=== PATIENT | male | born 1965 | race Caucasian/White ===

== ENCOUNTER 2017-11-06 13:23 | Emergency (ER) | payer OTHER ==
[~2017-11-06] VITALS: Ht 172.7 cm; Wt 76.0 kg
[~2017-11-06 13:23] MED LIST: IBUP-1451 PO
[2017-11-06 13:29] VITALS: TEMP 37.5
[2017-11-06 13:56] VITALS: O2SAT 94; Ht 172.7 cm; Wt 76.0 kg
[2017-11-06 14:05] LABS: BASO % 0.2 %; BASO ABS # 0.01 K/uL (0-0.2); EOS % 1.9 %; HEMATOCRIT 39.1 % (42-52); HEMOGLOBIN 12.8 g/dL (14.0-18.0); IG# 0.01 K/uL (0.00-0.02); LYMPH % 26.3 %; LYMPH ABS # 1.41 K/uL (1.2-3.4); MEAN CELL VOLUME 88.9 fL (80-100); MEAN CORPUSCULAR HEMOGLOBIN 29.1 pg (25-34); MEAN CORPUSCULAR HGB CONC 32.7 g/dl (32-36); MEAN PLATELET VOLUME 9.9 fL (7.4-10.4); MONO % 12.5 %; MONO ABS # 0.67 K/uL (0.11-0.59); NEUT % 58.9 %; NEUT ABS # 3.17 K/uL (1.4-6.5); PLATELET COUNT 171 K/uL (130-400); RED CELL DISTRIBUTION WIDTH CV 13.4 % (11.5-14.5); RED CELL DISTRIBUTION WIDTH SD 43.5 fL (36.4-46.3); WHITE BLOOD COUNT 5.37 K/uL (4.8-10.8)
[2017-11-06] MEDS ORDERED: LISI10TA PO (14:10)
[2017-11-06] MEDS ORDERED: OXYC-57 PO (14:10)
[2017-11-06] MEDS ORDERED: PROM25TA9 PO (14:10)
[2017-11-06 14:15] LABS: INR 0.9 (0.9-1.1); PTT PATIENT 30.2 SECONDS (21.0-31.0)
[2017-11-06 14:26] LABS: ALBUMIN 3.8 gm/dl (3.4-5.0); CALCIUM 9.1 mg/dl (8.5-10.1); CREATININE 0.86 mg/dl (0.60-1.40); POTASSIUM 4.1 mmol/L (3.5-5.1)
[2017-11-06 14:28] LABS: TOTAL PROTEIN 7.3 gm/dl (6.4-8.2)
--- NOTE | 2017-11-06 14:54 | DIAGNOSTIC IMAGING REPORT ---
VENOUS DOPPLER LWR EXT BILA CLINICAL HISTORY: 52 years-old Male presenting with recent surgery, swollen legs. TECHNIQUE: Real-time grayscale and color and spectral Doppler ultrasound imaging of the veins of the bilateral lower extremities was performed. Compression and augmentation were also utilized. COMPARISON: None. FINDINGS: Right: Common femoral vein: Patent. Greater saphenous vein: Patent. Deep femoral vein: Patent. Femoral vein: Patent. Popliteal vein: Patent. Calf veins: Patent. Left: Common femoral vein: Patent. Greater saphenous vein: Patent. Deep femoral vein: Patent. Femoral vein: Patent. Popliteal vein: Patent. Calf veins: Patent. Other: None. IMPRESSION: No evidence of deep venous thrombosis. Electronically signed by: Severo Stapleton M.D. 11/06/2017 2:53 PM Dictated Date/Time: 11/06/2017 2:52 PM
[2017-11-06] MEDS ORDERED: ONDANSETRON INJ 2 MG/ML 2 ML VIAL IV STA (15:05)
[2017-11-06] MEDS ORDERED: HYDROmorphone INJ 1 MG/ML SYR ONE (15:09)
[2017-11-06] MEDS ORDERED: ONDANSETRON INJ 2 MG/ML 2 ML VIAL ONE (15:09)
[2017-11-06] MEDS ORDERED: HYDROmorphone INJ 1 MG/ML SYR IV PRN (15:15)
[2017-11-06 15:29] VITALS: BP 133/78
[2017-11-06 16:07] VITALS: PULSE 70; O2SAT 97
--- NOTE | 2017-11-06 19:00 | EMERGENCY ROOM VISIT NOTE ---
History Report prepared by Cherise: Chirag Bishop Under the Supervision of: Dr. Marty Shah M.D. First contact with patient: 13:33 Chief Complaint: LEG PAIN,LEG INJURY Stated Complaint: SURGERY ON SATURDAY,LEG SWELLING History of Present Illness The patient is a 52 year old male who presents to the Emergency Room with complaints of bilateral lower extremity swelling that began about 1 hour ago. The patient had a right sided shoulder repair procedure two days ago. After the surgery, he states that he was having normal post operative pain but no other symptoms. Yesterday he was at his baseline as well and spent the day relaxing off of his feet like he was told. Today while the patient was walking down the stairs, he felt some right sided leg tightness which made him examine his legs. He then saw that both of his legs were more swollen than usual. He denies any specific leg pain at this time. Pt denies LOC, headache, fevers, chills, diaphoresis, visual changes, neck pain, chest pain, breathing difficulties, nausea, vomiting, abdominal pain, back pain, melena, hematochezia, urinary symptoms, numbness, weakness, lymphadenopathy, rash, or other complaints. He denies any previous leg swelling or blood clot history. He took one of his Oxycodone/Acetaminophen 5 mg/ 325 mg earlier today secondary to his shoulder pain. Source of History: patient Onset: 1 hour ago Position: leg (bilateral) Symptom Intensity: moderate Quality: other (Swelling) Timing: constant Note: He is experiencing right shoulder pain secondary to his recent surgery. He denies any leg pain. Review of Systems See HPI for pertinent positives and negatives. A total of ten systems were reviewed and were otherwise negative. Family History Patient reports no known family medical history. Social History Smoking Status: Never Smoker Marital Status: Housing Status: lives with significant other Occupation Status: employed Current/Historical Medications Scheduled Lisinopril (Prinivil), 10 MG PO DAILY Scheduled PRN Oxycodone/Acetaminophen 5MG/325MG (Percocet 5MG/325MG), 1-2 TABLETS PO Q6 PRN for Pain Promethazine Hcl (Phenergan), 25 MG PO Q6H PRN for Nausea Allergies Coded Allergies: No Known Allergies (Unverified , 11/06/17) Physical Exam Vital Signs Date Time Temp Pulse Resp B/P (MAP) Pulse Ox O2 Delivery O2 Flow Rate FiO2 11/06/17 16:07 70 18 97 11/06/17 15:29 73 18 133/78 93 Room Air 11/06/17 15:02 79 18 193/103 98 Room Air 11/06/17 13:56 94 Room Air 11/06/17 13:47 80 11/06/17 13:29 37.5 74 20 159/96 94 Room Air Physical Exam GENERAL: Awake, alert, well-appearing, in no distress HENT: Normocephalic, atraumatic. Oropharynx unremarkable. EYES: Normal conjunctiva. Sclera non-icteric. NECK: Supple. No nuchal rigidity. FROM. No masses. RESPIRATORY: Clear to auscultation. No wheezes. CARDIAC: Normal rate. Normal rhythm. No murmurs. No rubs. Extremities warm and well perfused. Pulses equal. No JVD. GI: Soft, non-distended. No tenderness to palpation. No rebound or guarding. No masses. RECTAL: Deferred. MUSCULOSKELETAL: Atraumatic. Chest examination reveals no tenderness. The back is symmetrical on inspection without obvious abnormality. There is no CVA tenderness to palpation. No joint edema. The right arm is in a shoulder immobilizer. Surgical bandages are in place over the right shoulder. LOWER EXTREMITIES: Calves are equal size bilaterally and non-tender. 1+ bilateral edema. No discoloration. NEURO: Normal sensorium. No sensory or motor deficits noted. SKIN: No rash or jaundice noted. Medical Decision & Procedures ER Provider Diagnostic Interpretation: Radiology results as stated below per my review and radiologist interpretation: VENOUS DOPPLER LWR EXT BILA CLINICAL HISTORY: 52 years-old Male presenting with recent surgery, swollen legs. TECHNIQUE: Real-time grayscale and color and spectral Doppler ultrasound imaging of the veins of the bilateral lower extremities was performed. Compression and augmentation were also utilized. COMPARISON: None. FINDINGS: Right: Common femoral vein: Patent. Greater saphenous vein: Patent. Deep femoral vein: Patent. Femoral vein: Patent. Popliteal vein: Patent. Calf veins: Patent. Left: Common femoral vein: Patent. Greater saphenous vein: Patent. Deep femoral vein: Patent. Femoral vein: Patent. Popliteal vein: Patent. Calf veins: Patent. Other: None. IMPRESSION: No evidence of deep venous thrombosis. Electronically signed by: Severo Stapleton M.D. 11/06/2017 2:53 PM Dictated Date/Time: 11/06/2017 2:52 PM Laboratory Results 11/06/17 13:52 Red Blood Count 4.40, Mean Corpuscular Volume 88.9, Mean Corpuscular Hemoglobin 29.1, Mean Corpuscular Hemoglobin Concent 32.7, Mean Platelet Volume 9.9, Neutrophils (%) (Auto) 58.9, Lymphocytes (%) (Auto) 26.3, Monocytes (%) (Auto) 12.5, Eosinophils (%) (Auto) 1.9, Basophils (%) (Auto) 0.2, Neutrophils # (Auto ) 3.17, Lymphocytes # (Auto) 1.41, Monocytes # (Auto) 0.67, Eosinophils # (Auto ) 0.10, Basophils # (Auto) 0.01 11/06/17 13:52 Test 11/06/17 13:52 White Blood Count 5.37 K/uL (4.8-10.8) Red Blood Count 4.40 M/uL (4.7-6.1) Hemoglobin 12.8 g/dL (14.0-18.0) Hematocrit 39.1 % (42-52) Mean Corpuscular Volume 88.9 fL (80-100) Mean Corpuscular Hemoglobin 29.1 pg (25-34) Mean Corpuscular Hemoglobin Concent 32.7 g/dl (32-36) Platelet Count 171 K/uL (130-400) Mean Platelet Volume 9.9 fL (7.4-10.4) Neutrophils (%) (Auto) 58.9 % Lymphocytes (%) (Auto) 26.3 % Monocytes (%) (Auto) 12.5 % Eosinophils (%) (Auto) 1.9 % Basophils (%) (Auto) 0.2 % Neutrophils # (Auto) 3.17 K/uL (1.4-6.5) Lymphocytes # (Auto) 1.41 K/uL (1.2-3.4) Monocytes # (Auto) 0.67 K/uL (0.11-0.59) Eosinophils # (Auto) 0.10 K/uL (0-0.5) Basophils # (Auto) 0.01 K/uL (0-0.2) RDW Standard Deviation 43.5 fL (36.4-46.3) RDW Coefficient of Variation 13.4 % (11.5-14.5) Immature Granulocyte % (Auto) 0.2 % Immature Granulocyte # (Auto) 0.01 K/uL (0.00-0.02) Prothrombin Time 9.8 SECONDS (9.0-12.0) Prothromb Time International Ratio 0.9 (0.9-1.1) Activated Partial Thromboplast Time 30.2 SECONDS (21.0-31.0) Partial Thromboplastin Ratio 1.2 Anion Gap 9.0 mmol/L (3-11) Est Creatinine Clear Calc Drug Dose 98.3 ml/min Estimated GFR () 116.4 Estimated GFR (Non- 100.4 BUN/Creatinine Ratio 11.3 (10-20) Calcium Level 9.1 mg/dl (8.5-10.1) Total Bilirubin 0.4 mg/dl (0.2-1) Aspartate Amino Transf (AST/SGOT) 19 U/L (15-37) Alanine Aminotransferase (ALT/SGPT) 38 U/L (12-78) Alkaline Phosphatase 49 U/L (45-117) Total Protein 7.3 gm/dl (6.4-8.2) Albumin 3.8 gm/dl (3.4-5.0) Globulin 3.5 gm/dl (2.5-4.0) Albumin/Globulin Ratio 1.1 (0.9-2) Laboratory results reviewed by me Medications Administered Medications (Trade) Dose Ordered Sig/Janessa Route Start Time Stop Time Status Last Admin Dose Admin Hydromorphone HCl (Dilaudid Inj) 1 mg Q15M PRN IV 11/06/17 15:15 11/06/17 16:33 DC 11/06/17 15:16 1 MG Ondansetron HCl (Zofran Inj) 4 mg NOW STAT IV 11/06/17 15:05 11/06/17 15:07 DC 11/06/17 15:05 4 MG ED Course 1333: The patient was evaluated in room A12. A complete history and physical exam was performed. 1505: Ordered Zofran Inj 4 mg IV 1515: Ordered Dilaudid Inj 1 mg IV 1554: I reviewed the patient's operative records at this time. 1610: I reevaluated the patient. Discussed results and discharge instructions: He verbalized understanding and agreement. The patient is ready for discharge. Medical Decision Prior records reviewed and summarized above. Triage Nursing notes reviewed and agree them. Additional history obtained from the family. The patient's history was concerning for swelling in the legs postoperatively. Differential diagnosis: Etiologies such as DVT, postoperative third spacing, joint effusion, infection, trauma, muscular, lymphedema, idiopathic, CHF, as well as others were entertained.. Physical examination: The physical examination revealed no signs of infection. Neurovascularly intact. ER treatment provided: The patient had significant pain in his shoulder area with lying in a reclined position. He was given a dose of IV Dilaudid and Zofran. On reassessment he was feeling significantly better. Diagnostics interpreted by me: The labs revealed unremarkable CBC and chemistry panel. LFTs normal. Imaging studies: Ultrasound as above. No evidence of DVT. The patient has swelling to days after his shoulder surgery. I did obtain the records from his outpatient procedure. There was no indication of fluid administered for the procedure but I suspect that this is related to IV fluid administration as would be standard for his surgery. The patient notes that he has been sitting mostly upright for the last 2 days and was encouraged to elevate his legs. By the evaluation outlined above other emergent etiologies such as those listed in the differential, as well as others, were deemed relatively unlikely. The patient was educated about the findings as listed above. All questions were answered and the patient was pleased with the treatment. Return instructions were outlined and the patient was discharged in stable condition. The patient was referred to orthopedics and his PCP for follow-up for a recheck of the current condition. Medication Reconcilliation Current Medication List: was personally reviewed by me Blood Pressure Screening Patient's blood pressure: Elevated blood pressure Blood pressure disposition: Elevated BP felt to be situational Impression Primary Impression: Bilateral lower extremity edema Scribe Attestation The scribe's documentation has been prepared under my direction and personally reviewed by me in its entirety. I confirm that the note above accurately reflects all work, treatment, procedures, and medical decision making performed by me. Departure Information Dispostion Home / Self-Care Referrals Hema Sams M.D. (PCP) Chris King M.D. Forms HOME CARE DOCUMENTATION FORM, IMPORTANT VISIT INFORMATION Patient Instructions My [facility] Additional Instructions Follow all instructions given to you by orthopedics. Elevate your legs. Watch your salt intake. Follow-up with your primary physician next week for recheck. Return to the emergency department for chest pain, difficulty breathing, increased leg swelling, fever, increased pain or redness in the legs, or as needed.
== END 2017-11-06 16:07 | disposition home or self-care (01) ==
LOC: C.EDB 13:24 → C.EDA 16:07
DX: R60.0 Localized edema (principal)

== ENCOUNTER 2025-05-11 05:20 | Observation (INO) ==
--- NOTE | 2025-02-10 14:17 | PAT Medication Instructions ---
Medication Instructions Date of Service February 10, 2025 Home Medications Medication Instructions Recorded lisinopril 20 mg tablet 20 mg PO BID #180 tabs 09/18/24 sertraline 25 mg tablet 25 mg PO BID #180 tabs 12/24/24 lisinopril 20 mg tablet 20 mg PO BID sertraline 25 mg tablet 25 mg PO BID hydrochlorothiazide 12.5 mg tablet 12.5 mg PO QAM meloxicam 15 mg tablet 15 mg PO DAILY PRN Pain ASK your surgeon for instructions meloxicam 15 mg tablet 15 mg PO DAILY PRN Pain DO NOT take the morning of surgery lisinopril 20 mg tablet 20 mg PO BID hydrochlorothiazide 12.5 mg tablet 12.5 mg PO QAM Take morning of surgery With a small sip of water, OTHERWISE NOTHING TO EAT OR DRINK AFTER MIDNIGHT: sertraline 25 mg tablet 25 mg PO BID Take evening before surgery lisinopril 20 mg tablet 20 mg PO BID sertraline 25 mg tablet 25 mg PO BID Other Notes If you have any questions please call us at [phone] or [phone] or [phone] or [phone]
--- NOTE | 2025-02-19 08:15 | Anesthesiology Consultation ---
Date of Service February 19, 2025 Assessment & Plan (1) Encounter for pre-operative examination: - Infectious disease screening: Per assessment on 02/19/25- No known recent infectious disease contacts or current infectious disease symptoms. - Outpatient joint assessment: Pt currently scheduled for inpatient pathway. If surgeon requests review for outpatient joint pathway, patient is an acceptable candidate for outpatient joint program from anesthesia standpoint pending surgeon's office assessment that patient is motivated, has good support and completes [facility] Program preop requirements. - ETOH use: Patient reports 3 drinks/day (beer/liquor). Denies morning ETOH use. Patient reports he has no concern with adhering to NPO guidelines. - Isolated elevated PTT: Preop labs with PTT at 42. Workload message sent to PCP regarding elevated PTT- Awaiting response. Patient otherwise acceptable risk for surgery. Chart Review Chart Review: Patient seen in Pre Admission Testing Teaching & Discussion Pre-Anesthesia Teaching/Discussion Notes: Instructed NPO after midnight before surgery,except medications with 15 cc of water. Medication instructions provided according to the PAT guidelines. History Surgery Operation Date: 03/09/25 12:30 Proposed Procedures p Left Total Hip Arthroplasty - Yaya Milton MD Height/Weight Height: 5 ft 8 in Weight: 78.1 kg Allergies Allergy/AdvReac Type Severity Reaction Status Date / Time No Known Drug Allergies Allergy Verified 02/10/25 12:14 Medications Home Medications Medication Instructions Recorded Confirmed Last Taken lisinopril 20 mg tablet 20 mg PO BID #180 tabs 09/18/24 02/10/25 Unknown sertraline 25 mg tablet 25 mg PO BID #180 tabs 12/24/24 02/10/25 Unknown hydrochlorothiazide 12.5 mg tablet 12.5 mg PO QAM 02/10/25 02/10/25 Unknown meloxicam 15 mg tablet 15 mg PO DAILY PRN Pain 02/10/25 02/10/25 Unknown Past Medical History Medical History Anemia Anxiety Degenerative joint disease of both hips Elevated ferritin level History of melanoma Hx of basal cell carcinoma Hx of herpes zoster 1 year ago Hx of squamous cell carcinoma Hypertension Leukopenia Prediabetes Exercise / Class Metabolic Activity II 4-5 Yardwork/Stairs/Walk up hill (one FS: No CP, no SOB) Past Family History Family History Mother Heart disease Denies family history of Ovarian cancer Prostate cancer Myocardial infarction Breast cancer Colorectal cancer Past Surgical History Surgical History H/O left knee surgery History of anesthesia reaction Difficulty waking after colonoscopy 09/2024 History of basal cell carcinoma (BCC) excision History of surgery on upper extremity Left biceps tear repair Hx of colonoscopy 09/2024 Hx of melanoma excision Hx of squamous cell carcinoma excision Status post rotator cuff repair left Past Anesthesia History No Family Hx of Anesthesia Complications and Other (Difficulty waking after colonoscopy 09/2024) History of PONV No Hx of PONV and Hx of Motion Sickness Social History Smoking Status: Former smoker Do You Dip or Chew Tobacco: No (Quit smoking/chewing 20 years ago) Smoking End Date: Quit smoking/chewing 20 years ago Hx Alcohol Use: Yes Alcohol type: beer and hard liquor alcohol intake frequency: 3 or more drinks per day (3 drinks/day (evening use only; no morning ETOH use per patient)) Hx Substance Use: No substance use type: does not use Review of Systems Patient denies chest pain, shortness of breath, dyspnea on exertion, fever, chills, cough, wheezing. Physical Exam Vital Signs BP 133/84 P 61 TEMP 98.3 SP02 95%RA RESP 16 Physical Full cervical extension range of motion. Full TMJ range of motion. TMD 3 finger breaths Mallampati Score III Dentition: missing molars, + crowns Lungs: clear throughout to auscultation Cardiac: regular rate and rhythm, no murmurs noted Spine: normal Carotid arteries: negative bruit Extremities: no LE edema Lab Results Anesthesia Preop Results Results Anesthesia Widget: WBC 4.38 K/ul (4.8-10.8) L 02/19/25 Hgb 13.9 g/dl (14.0-18.0) L 02/19/25 Hct 41.8 % (42.0-52.0) L 02/19/25 Plt 168 K/uL (130-400) 02/19/25 Na 138 mmol/L (136-145) 02/19/25 K 4.5 mmol/L (3.5-5.1) 02/19/25 Cl 104 mmol/L (98-107) 02/19/25 CO2 28 mmol/L (21-32) 02/19/25 BUN 18 mg/dl (6-23) 02/19/25 Creat 0.89 mg/dl (0.6-1.4) 02/19/25 Glucose Level 120 mg/dl (70-99(Fasting)) H 02/19/25 PT 10.6 Seconds (9.0-12.0) 02/19/25 PTT 42 Seconds (21-31) H 02/19/25 INR 1.0 (0.9-1.1) 02/19/25 Blood Type O Positive 02/19/25 Antibody Screen NEGATIVE 02/19/25 Testing Electrocardiogram Date: 02/19/25 NSR at 60bpm. "Normal ECG" Chest X-Ray Date: 02/19/25 Findings: + NAD
--- NOTE | 2025-03-01 17:34 | History & Physical Report ---
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 He is failed conservative measures. I really think most of the pain in this left leg is probably coming from his hip and may be why the knee scopes has not helped him much. He is ready to have his hip fixed. Plan: We discussed treatment options. We can proceed with left total hip replacement. The risks and benefits of this procedure explained. Informed consent was obtained. Is PTT is slightly elevated and awaiting response from primary care regarding this. He does have significant alcohol use and may need some DT prophylaxis in the hospital. We use aspirin for DVT prophylaxis. He is planned to be discharged to home using [facility] home [facility] program. His can assist in his care. (2) Prediabetes: (3) Hypertension: (4) Anxiety: History of Present Illness Chief Complaint: . Left leg pain. Primary Care Provider: ROSIBEL Pak . 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 He is got a similar history of increasing left leg pain and discomfort this gotten worse over time. He did have his knee scoped on [address] Anderson of the most recently a year ago. This provided minimal relief. Pain has become more persistent. The hips become more stiff. Has difficulty putting his shoes and socks on. Has difficulty standing and hiking for long periods of time. He did see a chiropractor for his back and had x-rays done which showed advanced hip arthritis. He now presents for treatment. Got groin pain. Thigh pain. Knee pain. Once again, the last knee scope did not help much. Allergies Allergy/AdvReac Type Severity Reaction Status Date / Time No Known Drug Allergies Allergy Verified 02/10/25 12:14 Home Medications Medication Instructions Recorded Confirmed Type lisinopril 20 mg tablet 20 mg PO BID #180 tabs 09/18/24 02/10/25 Rx sertraline 25 mg tablet 25 mg PO BID #180 tabs 12/24/24 02/10/25 Rx hydrochlorothiazide 12.5 mg tablet 12.5 mg PO QAM 02/10/25 02/10/25 History meloxicam 15 mg tablet 15 mg PO DAILY PRN Pain 02/10/25 02/10/25 History Past Med/Surg History Problem List Encounter for pre-operative examination Degenerative joint disease of both hips Prediabetes Anxiety Hypertension Medical History Hx of herpes zoster 1 year ago Hx of basal cell carcinoma Hx of squamous cell carcinoma History of melanoma Anxiety Degenerative joint disease of both hips Prediabetes Hypertension Elevated ferritin level Anemia Leukopenia Surgical History History of anesthesia reaction Difficulty waking after colonoscopy 09/2024 Hx of melanoma excision Hx of squamous cell carcinoma excision History of basal cell carcinoma (BCC) excision Hx of colonoscopy 09/2024 History of surgery on upper extremity Left biceps tear repair H/O left knee surgery Status post rotator cuff repair left Family History Mother Heart disease Denies family history of Ovarian cancer Prostate cancer Myocardial infarction Breast cancer Colorectal cancer Social History Smoking Status: Former smoker Tobacco Type: Cigarettes Age Started Using Tobacco: 17; Age Quit Using Tobacco: 35; packs per day: 1; Second Hand Exposure: No; Do You Dip or Chew Tobacco: No (Quit smoking/chewing 20 years ago); Hx Alcohol Use: Yes Alcohol type: beer and hard liquor Alcohol Intake Frequency: 4 or More x per/Week Hx Substance Use: No Preferred Language: Japanese Communication Ability: Effective Visual Impairment: No Limitations Hearing Ability: Normal 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 Physical Exam . Physical examination reveals a pleasant healthy-appearing middle-age male. He really looks to be in good health. Examination of the left hip and leg reveal patient walks with antalgic gait. Leg lengths appear pretty equal. Is got a very stiff hip with internal rotation in neutral at best. He does have varus alignment to his left knee. Got well-healed portal sites. No real knee effusion. Range of motion of the knee is 0-1 35. There is no instability. He does have pain with hip internal rotation. Negative straight leg raise. Constitutional WD/WN, vitals as above Respiratory normal respiratory effort, lungs clear to auscultation Cardiovascular RRR, no murmur, no edema Gastrointestinal (Abdomen) normal bowel sounds, soft, nontender, no hepatosplenomegaly Results & Data Results & Data Laboratory Results . Diagnostic Findings . X-rays of the left hip were reviewed. Shows advanced left hip arthritis. He is got complete loss of the joint space. Got osteophytes around the femoral head as well as the acetabulum. Got cystic change of both sides of the joint. He has similar but less severe disease on the right side. PG Care Time/CCT Total # of Minutes Spent Total Time Spent with Patient: Total time spent is greater than 50% in coordination of care (as documented) at patient's floor/unit and/or counseling patient: Coding Level of Care Code None Diagnoses Degenerative joint disease of both hips M16.0 Prediabetes R73.03 Hypertension I10 Anxiety F41.9
[2025-05-11] MEDS: dexAMETHasone**PF** 10 MG/ML VIAL IV SCH (05:55)
[2025-05-11] MEDS: LR 500ML BOLUS, THEN 15ML/HR IV SCH (05:55)
[2025-05-11] MEDS: LR 60ML/HR IV SCH (05:56)
[2025-05-11] MEDS: METOCLOPRAMIDE HCL 10 MG TABLET PO SCH (05:56)
[2025-05-11] MEDS: ACETAMINOPHEN 500 MG TAB PO SCH ×2 (05:56→11:20)
[2025-05-11] MEDS: FAMOTIDINE 20 MG TAB PO SCH (05:56)
[2025-05-11] MEDS: CeleBREX 200 MG CAP PO SCH (05:56)
[2025-05-11] MEDS ORDERED: BUPIVACAINE 0.5 % 5 MG/1 ML PF 10ML VIAL ONE (06:33)
[2025-05-11] MEDS ORDERED: MIDAZOLAM HCL 1 MG/ML 2ML VIAL ONE ×2 (06:38→07:42)
[2025-05-11] MEDS ORDERED: ONDANSETRON INJ 2 MG/ML 2 ML VIAL ONE (06:39)
[2025-05-11] MEDS ORDERED: PROPOFOL IV EMULSION 10 MG/ML 20 ML VIAL IV ONE (06:39)
[2025-05-11] MEDS ORDERED: HYDROmorphone INJ 2 MG/ML SYR/VIAL IV PRN (06:42)
[2025-05-11] MEDS ORDERED: ONDANSETRON INJ 2 MG/ML 2 ML VIAL IV PRN ×2 (06:42→10:15)
[2025-05-11] MEDS ORDERED: ATROPINE SULFATE 0.1 MG/ML 10ML SYR IV PRN (06:42)
[2025-05-11] MEDS: TRANEXAMIC ACID 1,000 MG **IV Pre-op IV SCH (06:48)
--- NOTE | 2025-05-11 06:54 | History & Physical Bridge Note ---
Date of Service May 11, 2025 History & Physical Bridge Note I have examined the patient, reviewed the History & Physical and in the interval since the performance of the History & Physical I have noted the following changes of clinical significance: no changes noted
[2025-05-11] MEDS ORDERED: GLYCOPYRROLATE 0.2 MG/ML VIAL ONE (07:29)
[2025-05-11] MEDS ORDERED: PHENYLEPHRINE 100MCG/ML 5ML SYR ONE (07:29)
[2025-05-11] MEDS: BUPIVACAINE/EPINEPHRINE 0.5% MPF 1:200,000 30 ML VIAL ONE (07:45)
[2025-05-11] MEDS ORDERED: ePHEDrine sulfate 50 MG/5 ML SYR ONE (07:56)
[2025-05-11] MEDS ORDERED: LABETALOL HCL IV 5 MG/ML 20ML IV ONE (08:02)
[2025-05-11] MEDS ORDERED: KETOROLAC 30 MG/ML VIAL ONE (08:13)
--- NOTE | 2025-05-11 08:48 | Operative Report ---
PG Post Operative Report Pre & Post Diagnosis Operation Date: 05/11/25 07:00 Pre-Op Diagnosis: Left Hip Osteoarthritis Post-Op Diagnosis: Left Hip Osteoarthritis I identified the patient and participated in the time-out.: Yes Procedure Operation Date: 05/11/25 07:00 Actual Procedures p Left Total Hip Arthroplasty(Left) - Yaya Milton MD Surgeon Yaya Milton MD Hostler Helper Benito Desai PA-C Estimated Blood Loss 100 Findings Consistent with Post-Op Diagnosis Specimens Left femoral head sent for pathology. 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 He x-rayed his left knee scoped twice without much relief of his pain. X-rays have shown advanced hip arthritis. He elected proceed with total hip arthroplasty. Description of Procedure Operative implants consist of: 1 Biomet G7 size 54 mm acetabular shell. 2. Cygnet hole mobile web application developer. 3. 6.5 cancellous acetabular screws 135 mm length and 1 of 30 mm length. 4. Highly cross-linked polyethylene liner with a 54 mm outer diameter and a 36 mm inner diameter. 5. DePuy Karaya size 10 KLA femoral stem. 6. +5/36 mm ceramic articular ball. The patient was taken the op room, identified, placed on the operating table in the supine position. All conductors were appropriately padded. IV antibiotics arrived by anesthesia team. A spinal anesthetic had been implemented in the holding area. The patient was then placed in the right lateral decubitus position. An axillary roll was placed. A stool Birkett position was used for positioning. The left hip and left leg were then prepped and draped in usual sterile fashion. A posterior lateral approach to the left hip was then performed through a curvilinear incision centered over the greater trochanter. Sharp dissection was carried through subcutaneous tissue down to the of the IT band gluteal fascia. The IT band gluteal fascia was sized longitudinally in line with skin incision. The greater troches bursa was excised. The piriformis and external rotators along with the posterior joint capsule were then released in the posterior aspect of the hip as a single layer. The hip was internally rotated and dislocated. A femoral neck osteotomy cut was made with Final Cut 5 mm above the lesser trochanter. Femoral head was removed and sent for pathology. The femur was retracted anteriorly. Attention drawn the acetabulum. The acetabular labrum was excised. The Pulvinal fat was excised. Sequential reaming the acetabulum was then performed again with a size 47 and progressing up to a 53. A 54 reamer was then used and a 54 mm Biomet G7 acetabular shell was then placed in about 4 degrees lateral opening and 20 degrees of anteversion. It was fixed with two 6.5 screws. A trial liner was placed. Attention drawn the femur. The proximal femur was entered with a Weimob cutter followed by canal finder. I then broached begin with size 8 and progressing up to a 10. We got excellent fit at the 10. It was little hard to even get that down. Calcar reamer was used smoothed off the calcar. We trialed the hip and the +5 articular ball provide full stability. Leg lengths appeared pretty equal. I did realize that maybe it lengthening him a little bit but he had severe arthritis in his other hip and this can be knee replaced as well. The hip was fully stable. We elected to place these implants. All trial implants were removed. Cygnet hole mobile web application developer was placed. Highly cross- linked polyethylene liner was placed. A size 10 KLA femoral stem was impacted in position. A +5/36 mm ceramic articular ball was placed. Hip was located and once again found to be stable. Attention drawn toward closing. The wound was irrigated coconuts pulsatile lavage solution. I did inject locally with 60 cc of half percent Marcaine with epinephrine. The posterior capsule and external rotators were then repaired to drawls in the posterior trochanter with #2 Tycron suture. The IT band gluteal fascia then closed in 1 PDS suture in running fashion. Subcutaneous tissues then closed with 2 layers with the deep layer 0 Vicryl suture and the subcutaneous layer with 2-0 Dexon suture in a buried interrupted fashion. Skin was closed with skin ginger. Leg was then cleaned and dried and a sterile dressing was Xeroform, 4 fours, ABD pad and foam tape was applied. Patient then transferred to the recovery in stable condition. The patient tolerated the procedure well and there were no complications. Benito Desai, my physician surgical first assistant, was present for the entire procedure. His assistance was required for proper patient positioning, prepping and draping, surgical exposure, retraction, perform the technical details of the operation, placement of the implants, closure of the incision site, placement of the postoperative sterile bandage. I attest to the content of the Intraoperative Record and any orders documented therein. Any exceptions are noted below.
--- NOTE | 2025-05-11 09:09 | XRay Report ---
XR hip 1V LT w pelvis CLINICAL HISTORY: IN PACU - Post Surgical COMPARISON: None FINDINGS: Left hip prosthesis shows no hardware complication. There is expected soft tissue gas. Ski n ginger are present. There are moderate degenerative changes right hip. IMPRESSION: Unremarkable postoperative exam. ACT 112: Negative or not required by law. Electronically signed by: Joey Tavares M.D. 05/11/2025 9:07 AM
--- NOTE | 2025-05-11 09:28 | Anesthesiology Progress Note ---
Date of Service May 11, 2025 Anesthesia Post Procedure Vital Signs Vital Signs: Temp Pulse Resp BP Pulse Ox O2 Del Method O2 Flow Rate 05/11/25 09:15 64 12 111/68 95 Room Air 05/11/25 09:05 36.4 C L 64 12 104/70 95 Room Air 05/11/25 08:55 68 14 114/67 99 Oxymask 2 05/11/25 08:45 72 12 107/64 97 Oxymask 4 05/11/25 08:35 36.3 C L 69 12 111/73 98 Oxymask 6 05/11/25 05:44 36.7 C 65 20 154/92 H 99 Room Air Pain Intensity Left Hip: Pain Intensity: 2 Transfer of Care Handoff Completed per policy Notes Mental Status: alert / awake / arousable Patient Amnestic to Procedure: Yes Nausea / Vomiting: adequately controlled Pain: adequately controlled Airway Patency, RR, SpO2: stable & adequate BP & HR: stable & adequate Hydration State: stable & adequate Neuraxial Anesthesia: was administered and sensory block is resolving Anesthetic Complications: no major complications apparent and Pt Satisfied with anesthetic care
[2025-05-11] MEDS ORDERED: ALUMINUM/MAGNESIUM SUSP 30 ML UDC PO PRN (10:15)
[2025-05-11] MEDS ORDERED: NON-FORMULARY MEDICATION (Amino Acids Capsule) PO SCH (10:15)
[2025-05-11] MEDS ORDERED: METOCLOPRAMIDE HCL INJ 5 MG/ML 2 ML VIAL IV PRN (10:15)
[2025-05-11] MEDS ORDERED: GLUCOSE 10 TAB/TUBE PO PRN (10:15)
[2025-05-11] MEDS ORDERED: PHARMACY GLYCEMIC MGMT CONSULT PRN (10:15)
[2025-05-11] MEDS ORDERED: HYDROmorphone INJ 0.5 MG/0.5 ML SYR IV PRN (10:15)
[2025-05-11] MEDS ORDERED: CARBOHYDRATES FOR HYPOGLYCEMIA PO PRN (10:15)
[2025-05-11] MEDS ORDERED: SENNA 8.6 MG TAB PO SCH (10:15)
[2025-05-11] MEDS ORDERED: DEXTROSE 50% 50 ML SYRINGE IV PRN (10:15)
[2025-05-11] MEDS ORDERED: NALOXONE HCL 0.4 MG/1 ML VIAL/CARP IV PRN (10:15)
[2025-05-11] MEDS ORDERED: TAMSULOSIN HCL 0.4 MG CAP PO PRN (10:15)
[2025-05-11] MEDS ORDERED: MAGNESIUM HYDROXIDE SUSP 30 ML UDC PO PRN (10:15)
[2025-05-11] MEDS ORDERED: GLUCOSE 40% GEL 15 GM TUBE PO PRN (10:15)
[2025-05-11] MEDS ORDERED: GLUCAGON FOR INJ 1 MG VIAL SQ PRN (10:15)
[2025-05-11] MEDS: DOCUSATE SODIUM 100 MG CAP PO SCH (11:21)
[2025-05-11] MEDS: KETOROLAC 30 MG/ML VIAL IV SCH (11:21)
[2025-05-11] MEDS: hydroCHLOROthiazide 25 MG TAB PO SCH (11:22)
[2025-05-11] MEDS: MULTIVITAMIN TAB PO SCH (11:23)
[2025-05-11] MEDS: SODIUM CHLORIDE 0.9% 1,000 ML IV SCH (11:24)
--- NOTE | 2025-05-11 11:45 | Pharmacy Report ---
Pharmacy Glycemic Short Note 2 - Date of Service May 11, 2025 - Glycemic Short BSG Results (Last 24 hours): 05/11/25 05/11/25 09:45 11:33 POC Glucose 151 H 137 H OUTPATIENT ANTIDIABETIC REGIMEN: * N/A HbA1c: 6.1% (10/21/24) ASSESSMENT: * KUNAL is a 59 year old male POD #0 s/p left total hip arthroplasty * Received 10 mg IV dexamethasone in OR, ordered 10 mg IV dose x 1 tomorrow AM (05/12/25) * Patient w/ history of prediabetes based on HbA1c w/ no current antidiabetic medications ordered as an outpatient * Postop blood glucose of 137 mg/dL PLAN FOR INPATIENT GLYCEMIC CONTROL: * Hold outpatient oral diabetes medications * Basal insulin * Hold today - reassess in AM * Bolus insulin * NovoLog per scale ACHS or Q6hrs while NPO * Goal Range: Low 110 mg/dL - High 140 mg/dL * Correction Factor: 30 mg/dL/unit * Nutritional / Prandial insulin per carb ratio of 1 unit per 10 grams CHO consumed
[2025-05-11] MEDS: SERTRALINE HCL 50 MG TABLET PO SCH (12:07)
[2025-05-11] MEDS: INSULIN ASPART PER UNIT CHARGE SC SCH (12:37)
[2025-05-11] MEDS: TRANEXAMIC ACID / 0.7% NACL 1,000 MG/100 ML BAG IV SCH (15:04)
[2025-05-11] MEDS: ASCORBIC ACID 500 MG TAB PO SCH (17:20)
[2025-05-11] MEDS: SENNA 8.6 MG TAB PO SCH (21:08)
[2025-05-12 06:06] LABS: Hematocrit (blood only) 31.9 % (42.0-52.0); Hemoglobin 10.8 g/dl (14.0-18.0); Immature Granulocytes # (auto) 0.03 K/uL (0.01-0.20); Immature Granulocytes % (auto) 0.4 %; Mean Corpuscular Hemoglobin 28.2 pg (25.0-34.0); Mean Corpuscular Volume 83.3 fL (80.0-100.0); Platelet Count 144 K/uL (130-400); RDW Standard Deviation 40.7 fL (36.4-46.3); Red Blood Count 3.83 M/uL (4.70-6.10); White Blood Count 7.18 K/ul (4.8-10.8)
[2025-05-12 06:27] LABS: Anion Gap 6.0 (3-11); Blood Urea Nitrogen 20.0 mg/dl (6-23); Calcium 8.6 mg/dl (8.6-10.3); Carbon Dioxide 26.0 mmol/L (21-32); Chloride 104.0 mmol/L (98-107); Creatinine Clr Calc Pharmacy 73.8 ml/min; Glucose 125.0 mg/dl (70-99(Fasting)); Potassium 4.3 mmol/L (3.5-5.1); Sodium 136.0 mmol/L (136-145)
[2025-05-12] MEDS: LANTUS PER UNIT CHARGE SC SCH (08:10)
[2025-05-12] MEDS: RIVAROXABAN 10 MG TABLET PO SCH (08:12)
[2025-05-12] MEDS: dexAMETHasone 10 MG in SYRINGE 0 ML IV SCH (08:13)
[2025-05-12 08:33] VITALS: BP 135/75; PULSE 61; RESP 16; TEMP 97.9; O2SAT 100
--- NOTE | 2025-05-12 09:11 | Orthopedic Progress Note ---
Date of Service May 12, 2025 Assessment & Plan (1) S/P total left hip arthroplasty: * Continue Current Treatment * Disposition: home * Daily treatment: Physical Therapy/ Occupational Therapy per protocol * Weight bearing status: WBAT, hip precautions * Continue to monitor for ABLA * Pain control * DVT prophylaxis, ASA * Office/hospital f/u 2 weeks for progress check and staple/suture removal * Plan for discharge today pending PT/OT clearance Subjective . Active Problems: S/p left total hip arthroplasty POD 1 59 y/o male s/p left total hip arthroplasty. Doing well overall, pain managed and improved function. Denies fever/chills, chest pain/SOB, nausea/vomiting. Otherwise no complaints. Review of Systems All systems reviewed & are unremarkable except as noted in HPI & below. Physical Exam . * General: Alert and oriented, no acute distress * Constitutional: well-developed, well-nourished. * Respiratory: Normal respiratory effort, no distress * Gastrointestinal: No tenderness to palpation, no rigidity or guarding. * Skin: No rash or lesion. * Neurologic: Grossly normal * Musculoskeletal: Left hip surgical dressing CDI, not removed for exam. Otherwise no obvious deformity or overlying skin changes. Diffuse TTP proximal thigh and hip region. Otherwise no specific tenderness of distal thigh, lower leg, foot/ankle. AROM hip flexion intact. AROM foot/ankle intact. Sensation intact plantar/dorsal foot. Brisk capillary refill. Results & Data Results & Data Laboratory Results . Diagnostic Findings . PG Care Time/CCT Total # of Minutes Spent Total Time Spent with Patient: Total time spent is greater than 50% in coordination of care (as documented) at patient's floor/unit and/or counseling patient: Coding Level of Care Code 36254 Post Operative Follow-Up Diagnoses S/P total left hip arthroplasty Z96.642
--- NOTE | 2025-05-12 09:25 | Pharmacy Report ---
Pharmacy Glycemic Short Note 2 - Date of Service May 12, 2025 - Glycemic Short BSG Results (Last 24 hours): 05/11/25 05/11/25 05/11/25 09:45 11:33 16:37 Glucose POC Glucose 151 H 137 H 190 H 05/11/25 05/12/25 05/12/25 20:23 05:39 07:47 Glucose 125 H POC Glucose 191 H 124 H OUTPATIENT ANTIDIABETIC REGIMEN: * N/A HbA1c: 6.1% (10/21/24) ASSESSMENT: 05/12/25: * Blood sugars ranging 137-191 mg/dL yesterday postoperatively * No basal insulin given since postop blood sugar of 137 mg/L and prediabetic only * Fasting blood sugar of 124 mg/dL today and ordered additional dose of IV dexamethasone * Will give low-dose basal insulin today w/ tightened Novolog parameters 05/11/25: * KUNAL is a 59 year old male POD #0 s/p left total hip arthroplasty * Received 10 mg IV dexamethasone in OR, ordered 10 mg IV dose x 1 tomorrow AM (05/12/25) * Patient w/ history of prediabetes based on HbA1c w/ no current antidiabetic medications ordered as an outpatient * Postop blood glucose of 137 mg/dL PLAN FOR INPATIENT GLYCEMIC CONTROL: * Basal insulin * Lantus 8 units SC daily * Bolus insulin * NovoLog per scale ACHS or Q6hrs while NPO * Goal Range: Low 110 mg/dL - High 140 mg/dL * Correction Factor: 25 mg/dL/unit * Nutritional / Prandial insulin per carb ratio of 1 unit per 8 grams CHO consumed
== END 2025-05-12 11:50 | disposition home health service (06) ==
LOC: ASU 05:20 → 3E 05:20